=== PATIENT | female | born 1990 | race Caucasian/White ===

== ENCOUNTER 2017-05-27 20:32 | Inpatient (IN) | payer SELFPAY ==
[2017-05-27] MEDS ORDERED: VANCOMYCIN HCL/NORMAL SALINE 250 ML IV ONE (20:54)
[2017-05-27] MEDS ORDERED: TDAP ADULT 0.5 ML INJ (BOOSTRIX) IM ONE (20:54)
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
[2017-05-27] MEDS ORDERED: PROPARACAINE 0.5% 15 ML OPHT DROP OP ONE (21:00)
[2017-05-27] MEDS ORDERED: FLUORESCEIN SODIUM 1 MG STRIP OP ONE (21:00)
[2017-05-27] MEDS ORDERED: FLUORESCEIN SOD/BENOXINATE HCL 20 DROPS/ML OPHT.BTL OP ONE (21:15)
[2017-05-27] MEDS ORDERED: FLUORESCEIN SOD/BENOXINATE HCL 20 DROPS/ML OPHT.BTL ONE (21:15)
[2017-05-27 21:36] LABS: PLATELET COUNT 286 10^3/uL (150-400)
[2017-05-27] MEDS ORDERED: OFLOXACIN 0.3% 5ML OPHT DROPS RTEYE SCH (22:00)
[2017-05-27] MEDS ORDERED: ONDANSETRON 4 MG/2 ML VIAL IVP PRN (22:24)
[2017-05-27] MEDS ORDERED: ONDANSETRON DISINTEGRATING 4 MG TAB PO PRN (22:24)
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
[2017-05-28 04:51] LABS: PLATELET COUNT 308 10^3/uL (150-400)
[2017-05-28] MEDS: OFLOXACIN 0.3% 5ML OPHT DROPS RTEYE SCH ×5 (05:18→21:26)
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
[2017-05-28] MEDS ORDERED: BACITRACIN 50,000 UNITS/10 ML SYR IRR ONE ×2 (08:35→09:54)
[2017-05-28] MEDS ORDERED: POLYMYXIN B SULFATE 500,000 UNIT/10 ML SYR IRR ONE ×2 (08:35→09:54)
[2017-05-28] MEDS ORDERED: BUPIVACAINE 0.5% 30 ML SDV ONE (08:35)
[2017-05-28] MEDS ORDERED: LR 1,000 ML IV ONE (09:04)
[2017-05-28] MEDS ORDERED: ALBUTEROL 3 ML DEYVIAL ONE (09:16)
[2017-05-28] MEDS ORDERED: IPRATROPIUM/ALBUTEROL 3 ML DEYVIAL IH ONE (09:17)
--- NOTE | 2017-05-28 09:22 | PDANEPAE ---
ANE History of Present Illness 26 yo female with h/o IV heroine use, cocaine use, MJ use here with L long finger infection. Pt does not seek medical care on regular basis. ANE Past Medical History - Cardiovascular History Hx Hypertension: No Hx Arrhythmias: No Hx Coronary Artery / Peripheral Vascular Disease: No - Pulmonary History Hx Asthma/Reactive Airway Disease: Yes Hx Oxygen in Use at Home: No Hx Sleep Apnea: No Sleep Apnea Screening Result - Last Documented: Negative - Endocrine History Hx Diabetes: No Hypothyroid: No Obesity: no ANE Review of Systems Review of Systems: - Exercise capacity METS (RN): 3 METS - Systems EENMT: Reports: tearing, other (R eye conjunctivits on Abx drops since admission ) Skin: Reports: other (R cheek erythematous) ANE Patient History - Allergies Allergies/Adverse Reactions: No Known Allergies Allergy (Unverified 05/27/17 20:36) - Home Medications Home Medications: Albuterol [Proventil Inhaler HFA (*)] 1 - 2 puffs IH Q4H PRN 05/27/17 [Last Taken Unknown] - NPO status NPO Since - Liquids (Date): 05/27/17 NPO Since - Liquids (Time): 00:00 NPO Since - Solids (Date): 05/27/17 NPO Since - Solids (Time): 23:00 - Smoking Hx Smoking Status: Current some day smoker ANE Labs/Vital Signs - Labs Result Diagrams: 05/28/17 04:25 05/28/17 04:25 - Vital Signs Blood Pressure: 132/84 Heart Rate: 91 Respiratory Rate: 21 O2 Sat (%): 93 Height: 175.26 cm Weight: 62.8 kg ANE Physical Exam - Airway Neck exam: FROM Mallampati Score: Class 3 - Pulmonary Pulmonary: reduced air movement - Cardiovascular Cardiovascular: regular rate and rhythym - ASA Status ASA Status: III ANE Anesthesia Plan Anesthesia Plan: GA w LMA
[2017-05-28] MEDS ORDERED: LIDOCAINE 2% 5 ML SDV ONE (09:26)
[2017-05-28] MEDS ORDERED: PROPOFOL 200 MG/20 ML VIAL ONE ×2 (09:26)
[2017-05-28] MEDS ORDERED: fentaNYL 100 MCG/2 ML INJ ONE (09:26)
[2017-05-28] MEDS ORDERED: DIAZEPAM 5 MG/ML 1 ML SYR ONE (09:43)
[2017-05-28] MEDS ORDERED: ONDANSETRON 4 MG/2 ML VIAL ONE (09:56)
[2017-05-28] MEDS: VANCOMYCIN HCL/NORMAL SALINE 250 ML IV SCH ×2 (10:00→21:26)
[2017-05-28] MEDS ORDERED: DIAZEPAM 5 MG/ML 1 ML SYR IVP PRN (10:22)
[2017-05-28] MEDS ORDERED: PROMETHAZINE HCL 25 MG/ML INJ IVP PRN (10:22)
[2017-05-28] MEDS ORDERED: NALOXONE HCL 0.4 MG/ML INJ IVP PRN (10:22)
[2017-05-28] MEDS ORDERED: ALBUTEROL 3 ML DEYVIAL IH PRN (10:22)
[2017-05-28] MEDS ORDERED: LR 500 ML IV PRN (10:22)
[2017-05-28] MEDS ORDERED: oxyCODONE IR 5 MG TAB PO PRN (10:22)
[2017-05-28] MEDS ORDERED: BACITRACIN ZINC 14.2 GM OINTTUBE TP ONE (10:29)
[2017-05-28] MEDS ORDERED: KETOROLAC 30 MG/1 ML SDV ONE (10:30)
--- NOTE | 2017-05-28 10:50 | POSTANESTH ---
Post Anesthetic Evaluation Cardiovascular Status: Normal, Stable Respiratory Status: Normal, Stable Level of Consciousness/Mental Status: Can Participate in Eval, Moderately Sleepy Pain Control: Inadeq, Add Tx Required (Pt having pain despite high dose narcotics and Valium. I did discuss pre-operatively the expected difficulty in controlling her post-op pain in light of her heroine, cocaine, and MJ use. Pt voiced understanding, and says she can deal with her current pain level.) Nausea/Vomiting Control: Adequate, Prn Tx Ordered Complications Possibly Related to Anesthesia: None Noted
--- NOTE | 2017-05-28 11:17 | GOP ---
[f rep st] OPERATIVE REPORT DATE OF OPERATION: 05/28/2017 SURGEON: Tristen Trimble MD ANESTHESIA: General. PREOPERATIVE DIAGNOSIS: Left 2nd finger, septic tenosynovitis. POSTOPERATIVE DIAGNOSIS: Left 2nd finger, septic tenosynovitis. PROCEDURE PERFORMED: Incision and drainage, left 2nd finger, flexor tendon sheath with lavage. FINDINGS: DESCRIPTION OF PROCEDURE: Patient taken to the operating room, administered general anesthesia, plac ed in supine position. Left upper extremity was prepped and draped in normal sterile fashion. Esmar ch was taken from the hand level proximally and the brachial cuff was elevated to 225 mmHg pressure. Incision was made over the A1 david. It was carried through dermal subcutaneous tissues. The A1 p ulley was released and the sheath opened proximally. A culture was taken of some serous fluid in kendrick t area. It did not appear to be purulent. The distal finger was exposed through a 2nd incision, jus t distal to the A4 david. A slight Josiah type shaped incision was made. The blunt spreading was performed down to the sheath and the sheath was opened distally. There was a little more fluid obtai talat from this area. A 2nd culture was taken. The tendon sheath was copiously irrigated with saline solution using a pediatric feeding tube. The incisions were then closed with 5-0 nylon suture in a l oose fashion. A sterile compression dressing was applied. Several small lesions, 1 in the adjacent 3rd finger in the dermis and 1 in the forearm were cleaned up and covered with sterile dressings. Th e patient tolerated the procedure well, was transferred back to recovery in stable condition. No ope rative complications. COMPLICATIONS: None. /[id number]/MODL
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
--- NOTE | 2017-05-28 13:20 | ASMTCMCOM ---
CM Note CM Note Notes: 26yr old female admitted for Infected finger, R eye conjunctivitis, HX IV Heroin use, Cocaine, THC, smoker, Homeless. Patient went to surgery to drain finger on ABX. Patient will be screened for Medicaid on Monday. CM to follow for possible discharge needs. Date Signed: 05/28/2017 01:19 PM Electronically Signed By:Mildred Arreola LCSW
[2017-05-28] MEDS: ERTAPENEM 1 GM VIAL IV SCH (13:52)
[2017-05-28] MEDS: ACETAMINOPHEN 325 MG TAB PO PRN (14:00)
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
[2017-05-29] MEDS: OFLOXACIN 0.3% 5ML OPHT DROPS RTEYE SCH ×4 (02:07→15:12)
[2017-05-29 03:18] LABS: HEPATITIS C ANTIBODY TOTAL NEGATIVE (NEGATIVE); HIV TYPE 1 AND 2 NEGATIVE (NEGATIVE)
--- NOTE | 2017-05-29 08:01 | SOAPPROG ---
SOAP Progress Note Assessment/Plan: Assessment: SEPTIC TENOSYNOVITIS LEFT 2ND FINGER IMPROVING Plan: nOT LIKELY 2NDARY TO HUMAN BITE CONTINUE VANCO UNTIL CULTURES BACK BUSHLER TO SEE 05/29/17 07:58 Subjective: i FEEL A LITTLE BETTER Objective: Vital Signs Temp Pulse Resp BP Pulse Ox 37.1 C 83 16 126/64 H 94 05/29/17 04:00 05/29/17 04:00 05/29/17 04:00 05/29/17 04:00 05/29/17 04:00 05/28/17 05/29/17 05/30/17 05:59 05:59 05:59 Intake Total 350 Balance 350 LESS ERYTHEMA L 2ND FINGER NO DRAINAGE ICD10 Worksheet Patient Problems: Problems Problem Status Onset Tenosynovitis of finger Acute
[2017-05-29 08:06] VITALS: RESP 12; TEMP 98.4
[2017-05-29] MEDS: ERTAPENEM 1 GM VIAL IV SCH (09:14)
[2017-05-29] MEDS: ACETAMINOPHEN 325 MG TAB PO PRN (09:30)
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
[2017-05-29] MEDS ORDERED: VANCOMYCIN 750 MG in D5W 150 ML IV SCH ×2 (10:30→11:00)
[2017-05-29] MEDS: VANCOMYCIN HCL/NORMAL SALINE 250 ML IV SCH (11:52)
[2017-05-29] MEDS ORDERED: VANCOMYCIN HCL/NORMAL SALINE 250 ML IV SCH (12:00)
--- NOTE | 2017-05-29 13:03 | ECHO ---
[email or web address] [address] [address] Main: [phone] Fax: Transthoracic Echocardiogram Name: TIAN IQBAL MR#: [id number] Study Date: 05/29/2017 Study Time: 10:51 AM Date of : 1990 Age: 26 year(s) Height: 175.3 cm (69 in.) Weight: 62.6 kg (138 lb.) BSA: 1.76 m2 Gender: Female Examination: Echo Indication: Bacteremia Image Quality: Adequate Contrast: Requested by: Sivakumar Moise BP: 121 mmHg/76 mmHg Heart Rate: Rhythm: Normal sinus rhythm Indication: Bacteremia Procedure Staff Combination Machine Tool Setter: Ashli Vasquez [facility] Reading Physician: Deepti Otero MD Requesting Provider: Conclusions: Normal size left ventricle. No LV hypertrophy. Normal global systolic LV function. EF is 70 %. No regional wall motion abnormality. Normal size right ventricle. Normal RV function. No significant valvular disease. No prior echo Measurements: Chambers Valvular Assessment AV/MV Valvular Assessment TV/PV Normal Normal Normal Name Value Range Name Value Range Name Value Range Ao Rohnda (2D): 2.3 cm (1.4 cm-2.6 AV meanP mmHg ( - ) PV Vmax: 1.03 m/s (0.6 m/s-0.9 cm) LVOT Vmax: 1.26 m/s (0.7 m/s-1.1 m/s) IVSd (2D): 0.8 cm (0.6 cm-1.1 m/s) PV PGmax: 4 mmHg ( - ) cm) HERMES (VTI): 1.9 cm ( - ) LVDd (2D): 3.9 cm (3.9 cm-5.3 MV E Vmax: 0.92 m/s ( - ) cm) MV A Vmax: 0.54 m/s ( - ) LVDs (2D): 2.5 cm (2.1 cm-4 MV E/A: 1.70 ( - ) cm) MV PHT: 0.059 s ( - ) LVPWd (2D): 0.9 cm ( - ) MVA (PHT): 3.7 s ( - ) LVOTd 1.6 cm 1.6 cm mm LVEF (BP): 70 % (>=55 %) RVDd(2D): 2.1 cm (1.9 cm-3.8 cmmm) Continued Measurements: Chambers Valvular Assessment AV/MV Valvular Assessment TV/PV Patient: TIAN IQBAL Study Date: 05/29/2017 Page 1 of 2 10:51 AM Name Value Name Value Name Value LADs: 2.3 cm MV DecTime: 194 m/s CVP (est.): 5 mmHg LADs Lon.3 cm MV E/E' Septal: 7.00 LA Area: 12.6 cm2 MV E/E' Lateral: 6.60 LA Volume: 26 ml LA Volume Index: 14.8 ml/m2 RA Area: 11.8 cm2 Additional Vessels Name Value Ao Ascendin.2 cm Findings: Left Ventricle: Normal size left ventricle. No LV hypertrophy. Normal global systolic LV function. EF is 70 %. No regional wall motion abnormality. Normal diastolic LV function. Right Ventricle: Normal size right ventricle. Normal RV function. Left Atrium: The left atrium is normal in size. Right Atrium: The right atrium is normal in size. Mitral Valve: The mitral valve is normal in appearance and function. Trivial mitral valve regurgitation. No mitral stenosis is present. There is no mitral valve vegetation. Aortic Valve: The aortic valve is tri-leaflet and functions normally. There is no aortic valve regurgitation. No aortic valve stenosis is present. There is no aortic valve vegetation. Tricuspid Valve: The tricuspid valve is normal in appearance and function. Trivial tricuspid valve regurgitation. Pulmonary artery pressure is not obtained due to inadequate TR jet. No tricuspid valve vegetation. Pulmonic Valve: The pulmonic valve is normal in appearance and function. There is no pulmonic regurgitation seen. Aorta: The aorta is normal. Normal size aortic root measuring 2.7 cm, measuring 2.3 cm. Normal size ascending aorta measuring 2.2 cm. IVC: The IVC is normal sized. Pericardium: No pericardial effusion. (No Signature Object) Patient: TIAN IQBAL Study Date: 05/29/2017 Page 2 of 2 10:51 AM [id number]
[2017-05-29 15:12] VITALS: BP 118/74
[2017-05-29 15:53] VITALS: PULSE 77; O2SAT 96
--- NOTE | 2017-05-29 16:42 | ASMTCMCOM ---
CM Note CM Note Notes: Pt leaves AMA. Pt was counseled leaving, not completing the antibiotics could be life threatening, pt states if she feels ill she will return to [facility]. Pt reports she has a court date and will not miss it because she is leaving. Behavioral Health RN attempted to meet with pt today, see note. Date Signed: 05/29/2017 04:42 PM Electronically Signed By:EDYTA Zaidi
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
--- NOTE | 2017-05-29 22:41 | GDS ---
[f rep st] DISCHARGE SUMMARY ALL DIAGNOSES: 1. Polymicrobial bacteremia with methicillin-sensitive Staphylococcus aureus as well as Streptococcu s pyogenes. 2. Left 2nd finger septic tenosynovitis, status post I and D. 3. Intravenous drug abuse. 4. Right eye conjunctivitis. HOSPITAL COURSE: A 26-year-old female admitted with tenosynovitis. She underwent an I and D by Dr. Trimble on 05/28/2017. Cultures from that are growing Staph aureus. She had positive blood cultures w ith Staph aureus as well as Strep pyogenes. Notably, she had some facial lesions which were also pos itive for those 2 bacteria. She was started on vancomycin as well as Invanz. I saw her earlier on the day of discharge. RN had been concerned that she would try to leave AMA. I spoke with her very clearly that this is a life-threatening infection and she should not leave AMA. She was seen by Infectious Disease who also reiterated this. Later in the day, she did elect to leave AMA. I had left prescriptions for oral antibiotics, juvenile counselor ing her that this is very substandard care. However, I feel that this is better than sending her out with no antibiotics. She got prescriptions for Keflex as well as doxycycline. She departed before I was able to return to see her in the afternoon. /[id number]/MODL
== END 2017-05-29 16:41 | disposition left against medical advice (07) | DRG 514 ==
LOC: F3N 22:37 → OBSVTOIN 05-28 13:12
PROVIDERS: ADMIT Internal Medicine; ATTEND Student in an Organized Health Care Education/Training Program
PROC: 0L980ZZ Drainage of Left Hand Tendon, Open Approach (ICD-10-PCS; principal; 2017-05-28 09:30)
DX: M65.142 Other infective (teno)synovitis, left hand (principal); L03.012 Cellulitis of left finger; B95.61 Methicillin susceptible Staphylococcus aureus infection as the cause of diseases classified elsewhere; B95.4 Other streptococcus as the cause of diseases classified elsewhere; F11.10 Opioid abuse, uncomplicated; H10.9 Unspecified conjunctivitis; F17.210 Nicotine dependence, cigarettes, uncomplicated; Z59.0 Homelessness; Z23 Encounter for immunization
CPT/HCPCS: 96365; G0378; G0472; J1335; J1885; J2270; J2405; J2704; J3010; J3360; J3370; J7613

== ENCOUNTER 2017-07-11 00:21 | Emergency (ER) | payer SELFPAY ==
[2017-07-11] MEDS ORDERED: SULFAMETHOX/TMP 800/160 MG 1 TAB PO ONE (00:23)
[2017-07-11] MEDS ORDERED: CEPHALEXIN 500 MG CAP PO ONE (00:23)
--- NOTE | 2017-07-11 00:23 | EDPHY ---
H & P Time Seen by Provider: 07/11/17 00:22 HPI/ROS: HPI CHIEF COMPLAINT: Medical clearance for [facility], left upper extremity cellulitis HISTORY OF PRESENT ILLNESS: This patient is a 26-year-old female, she has a history of IV drug abuse including IV methamphetamine and IV heroin, she actively injects daily, she presents to the emergency room for medical clearance for [facility]. She is under arrest. Upon further evaluation of her she is brought here to the ER because she has some cellulitis to her left upper extremity. She states this been warm and red for the past 2-3 days after injecting drugs. She denies any fever. Denies significant pain. She has a history of MRSA. Past Medical History: History of MRSA infection, IV drug use. Past Surgical History: No recent surgery Social History: Homeless, IV drug use. Family History: Noncontributory ROS REVIEW OF SYSTEMS: A comprehensive 10 point review of systems is otherwise negative aside from elements mentioned in the history of present illness. Exam Constitutional poor hygiene, unkept triage nursing summary reviewed, vital signs reviewed, awake/alert. Eyes normal conjunctivae and sclera, EOMI, PERRLA. HENT normal inspection, atraumatic, moist mucus membranes, no epistaxis, neck supple/ no meningismus, no raccoon eyes. Respiratory clear to auscultation bilaterally, normal breath sounds, no respiratory distress, no wheezing. Cardiovascular no murmur on exam. rate normal, regular rhythm, no murmur, no edema, distal pulses normal. Gastrointestinal soft, non-tender, no rebound, no guarding, normal bowel sounds, no distension, no pulsatile mass. Genitourinary no CVA tenderness. Musculoskeletal no midline vertebral tenderness, full range of motion, no calf swelling, no tenderness of extremities, no meningismus, good pulses, neurovascularly intact. Skin left upper extremity at the antecubital fossa region there cellulitis present, there is no significant abscess or fluctuance appreciated. She is neurovascularly distally intact good pulse and good cap refill. Neurologic awake, alert and oriented x 3, AAOx3, moves all 4 extremities equally, motor intact, sensory intact, CN II-XII intact, normal cerebellar, normal vision, normal speech. Psychiatric normal mood/affect. Heme/Lymph/Immune no lymphadenopathy. Differential Diagnosis: Includes but is not limited to in a particular order cellulitis, strep infection, MRSA infection, infection from IV drug use Medical Decision Making: Plan for this patient recommend warm compresses 2 to 3 times a day for 20 min. Additionally oral Bactrim and oral Keflex. Additionally return precautions discussed understands return emergency room if there is worsening redness, swelling, pain or fever. She will be medically cleared for [facility]. There is no large abscess that needs to be I and D at this point. Source: Patient, Police - Medical/Surgical History Hx Asthma: Yes Hx Chronic Respiratory Disease: No Hx Diabetes: No Hx Cardiac Disease: No Hx Renal Disease: No Hx Cirrhosis: No Hx Alcoholism: No Hx HIV/AIDS: No Hx Splenectomy or Spleen Trauma: No - Social History Smoking Status: Current some day smoker Allergies/Adverse Reactions: No Known Allergies Allergy (Unverified 05/27/17 20:36) Home Medications: Medication Instructions Recorded Albuterol [Proventil Inhaler HFA 1 - 2 puffs IH Q4H PRN 05/27/17 (*)] Cephalexin [Keflex] 500 mg PO Q6H #28 cap 07/11/17 Sulfamethox/Tmp 800/160 mg 1 tab PO BID@1000,2200 #14 tab 07/11/17 [Bactrim Ds] Departure - Departure Disposition: Home, Routine, Self-Care Clinical Impression: Cellulitis Qualifiers: Site of cellulitis: extremity Site of cellulitis of extremity: upper extremity Laterality: left Qualified Code(s): L03.114 - Cellulitis of left upper limb Condition: Good Instructions: Cellulitis (ED) Additional Instructions: 1. Medically cleared for [facility]. 2. Recommend warm compresses 2 to 3 times a day for 20 min. 3. Antibiotics as prescribed. 4. Return emergency room if there is worsening symptoms includes worsening redness, pain, swelling, fever. Referrals: NONE *PRIMARY CARE P,. [Primary Care Provider] - As per Instructions Prescriptions: Cephalexin [Keflex] 500 mg PO Q6H #28 cap Sulfamethox/Tmp 800/160 mg [Bactrim Ds] 1 tab PO BID@1000,2200 #14 tab
[2017-07-11 00:29] VITALS: BP 147/90
== END 2017-07-11 00:34 | disposition home or self-care (01) ==
DX: L03.114 Cellulitis of left upper limb (principal); J45.909 Unspecified asthma, uncomplicated; F17.200 Nicotine dependence, unspecified, uncomplicated

== ENCOUNTER 2017-10-21 13:09 | Emergency (ER) | payer SELFPAY ==
[~2017-10-21 13:09] MED LIST: CEPHALEXIN 500 MG CAP PO SCH; SULFAMETHOX/TMP 800/160 MG 1 TAB PO SCH
[2017-10-21 13:18] VITALS: BP 131/80
--- NOTE | 2017-10-21 13:55 | EDPHY ---
H & P Time Seen by Provider: 10/21/17 13:34 HPI/ROS: CHIEF COMPLAINT: [facility] clearance [facility] HISTORY OF PRESENT ILLNESS: 27-year-old female presents to the emergency department for medical clearance for [facility]. She is currently in police custody. She has a history of IV methamphetamine and heroin abuse. She has a history of multiple abscesses. She states that she had an abscess to her right forearm which she was able to open and drain. She apparently got a lot of pus out of the wound in her right forearm. She is also complaining of multiple areas of scabbing an open wounds to her face and upper lower extremities. She denies pain in her chest or difficulty breathing. No fevers or chills. No abdominal pain or vomiting. REVIEW OF SYSTEMS: Constitutional: No fever, no chills. Eyes: No double or blurry vision. ENT: No sore throat. Respiratory: No cough, no shortness of breath. Cardiac: No chest pain. Gastrointestinal: No abdominal pain, vomiting or diarrhea. Genitourinary: No dysuria. Musculoskeletal: No neck or back pain. Skin: Abrasions. No rashes. Neurological: No headache. Past Medical/Surgical History: Substance abuse Social History: Homeless Smoking Status: Current every day smoker Physical Exam: General Appearance: Alert, no distress. No signs of acute trauma to her head. Eyes: Pupils equal and round. Extraocular motions are all intact. ENT: Mouth: Mucous membranes moist. Respiratory: No wheezing, rhonchi, or rales, lungs are clear to auscultation. Cardiovascular: Regular rate and rhythm. Gastrointestinal: Abdomen is soft and nontender, no masses, no rebound or guarding, bowel sounds normal. Neurological: Alert and oriented x 3, cranial nerves II through XII grossly intact Skin: She has an area of redness noted to the right mid forearm. He does nontender to palpate. There is no fluctuance. There is a very small open central part of the wound with no drainage noted. No palpable bony tenderness. No lymphangitis. She has multiple areas of excoriation to her left upper extremity as well as to her face including to the very tip of the nose. Warm and dry, no rashes. Musculoskeletal: Nontender to palpate along the cervical, thoracic or lumbar spine. Neck is supple. Extremities: Full range of motion and no peripheral edema. Psychiatric: Patient is oriented X 3, there is no agitation. Constitutional: Initial Vital Signs Temperature (C) 36.8 C 10/21/17 13:10 Heart Rate 110 H 10/21/17 13:10 Respiratory Rate 16 10/21/17 13:10 Blood Pressure 131/80 H 10/21/17 13:10 O2 Sat (%) 95 10/21/17 13:10 O2 Delivery Mode Room Air Allergies/Adverse Reactions: No Known Allergies Allergy (Unverified 05/27/17 20:36) Home Medications: Medication Instructions Recorded Albuterol [Proventil Inhaler HFA 1 - 2 puffs IH Q4H PRN 05/27/17 (*)] Cephalexin [Keflex] 500 mg PO Q6H #28 cap 07/11/17 Sulfamethox/Tmp 800/160 mg 1 tab PO BID@1000,2200 #14 tab 07/11/17 [Bactrim Ds] Cephalexin [Keflex] 500 mg PO QID #28 cap 10/21/17 Sulfamethox/Tmp 800/160 mg 1 tab PO BID #14 tab 10/21/17 [Bactrim DS] Medical Decision Making ED Course/Re-evaluation: 27-year-old female presents for medical clearance for [facility]. She will be covered with Keflex and Bactrim as directed for 7 days. I do not think further incision and drainage are needed. She has been medically cleared for [facility]. Differential Diagnosis: Including but not limited to abscess, cellulitis, excoriated wounds, substance abuse Departure - Departure Disposition: Home, Routine, Self-Care Clinical Impression: Substance abuse, Cellulitis of right forearm Condition: Good Instructions: Cephalexin (By mouth), Sulfamethoxazole/Trimethoprim (By mouth), Cellulitis (ED), Polysubstance Abuse (ED) Additional Instructions: Keflex and Bactrim as directed for 1 week. Return if you developed increasing pain or swelling, fever, red streaking up your arm, or if you feel worse in any way. Referrals: [facility],. [Clinic] - As per Instructions Prescriptions: Cephalexin [Keflex] 500 mg PO QID #28 cap Sulfamethox/Tmp 800/160 mg [Bactrim DS] 1 tab PO BID #14 tab
== END 2017-10-21 14:30 ==
DX: L03.115 Cellulitis of right lower limb (principal); F17.210 Nicotine dependence, cigarettes, uncomplicated; Z59.0 Homelessness; F15.10 Other stimulant abuse, uncomplicated; F11.10 Opioid abuse, uncomplicated